=== PATIENT | female | born 1940 | race Caucasian/White ===

== ENCOUNTER 2019-12-03 09:08 | Outpatient (CLI) | payer MEDICARE, BC, SELFPAY ==
--- NOTE | ~2019-12-03 | DEXA_ITS ---
BMD(1) Young-Adult(2) Age-Matched(3) Region (g/cm2) T-score Z-score WHO Classification L1 0.907 -1.9 -0.1 Osteopenia L2 0.913 -2.5 -0.7 Osteoporosis L3 1.012 -1.6 0.1 Osteopenia L4 1.176 -0.3 1.5 Normal L1-L4 1.020 -1.4 0.4 Osteopenia Trend: L1-L4 Change vs Change vs Measured Age BMD(1) Baseline Previous Date (years) (g/cm2) (%) (%) 12[birth year]03/2019 [age] 1.020 baseline - 1 - Statistically 68% of repeat scans fall within 1SD (+- 0.010 g/cm2 for AP Spine L1-L4) 2 - [place] (Combined NHANES (ages 20-30) / Suitey (ages 20-40)) AP Spine Reference Population (v112) 3 - Matched for Age, Weight (females 25-100 kg), Ethnic 11 - World Health Organization - Definition of Osteoporosis and Osteopenia for Women: Normal = T-score at or above -1.0 SD; Osteopenia = T-score between -1.0 and -2.5 SD; Osteoporosis = T-score at or below -2.5 SD; (WHO definitions only apply when a young healthy Women reference database is used to determine T-scores.) Printed: 12/03/2019 10:02:55 AM (13.60)76:3.00:50.00:12.0 0.00:11.58 0.60x1.05 21.3:%Fat=35.3% 0.00:0.00 0.00:0.00 Filename: [id number] Scan Mode: Standard;OneScan 37.0 Dresser [place] [id number] BMD(1) Young-Adult(2,7) Age-Matched(3) Region (g/cm2) T-score Z-score WHO Classification Neck Left 0.724 -2.3 -0.2 Osteopenia Right 0.976 -0.4 1.6 Normal Mean 0.850 -1.4 0.7 Osteopenia Difference 0.252 1.8 1.8 - Total Left 0.763 -1.9 -0.1 Osteopenia Right 0.953 -0.4 1.4 Normal Mean 0.858 -1.2 0.7 Osteopenia Difference 0.190 1.5 1.5 - Hip [place] Length Comparison (mm) (Right = 108.2 mm) (Mean = 100.9 mm) (Left = 107.0 mm) Trend: Total Mean Change vs Change vs Measured Age BMD(1) Baseline Previous Date (years) (g/cm2) (%) (%) 12/03/2019 79.6 0.858 baseline - 1 - Statistically 68% of repeat scans fall within 1SD (+- 0.010 g/cm2 for DualFemur Total) 2 - [place] (Combined NHANES (ages 20-30) / Suitey (ages 20-40)) Femur Reference Population (v112) 3 - Matched for Age, Weight (females 25-100 kg), Ethnic 7 - DualFemur Total T-score difference is 1.5. Asymmetry is Significant. 11 - World Health Organization - Definition of Osteoporosis and Osteopenia for Women: Normal = T-score at or above -1.0 SD; Osteopenia = T-score between -1.0 and -2.5 SD; Osteoporosis = T-score at or below -2.5 SD; (WHO definitions only apply when a young healthy Women reference database is used to determine T-scores.) Printed: 12/03/2019 10:02:55 AM (13.60); Filename: [id number]; Right Femur; 17.5:%Fat=29.3%; Neck Angle (deg)= 62; Scan Mode: Standard 37.0 uGy; Left Femur; 17.0:%Fat=28.6%; Neck Angle (deg)= 60; Scan Mode: Standard 37.0 uGy Sendmail [id number] Dear Richard Duarte, Your patient Rosamaria Noe completed a BMD test on 12/03/2019 using the Sendmail DXA System (analysis version: 13.60) manufactured by [employer]. The following summarizes the results of our evaluation. PATIENT BIOGRAPHICAL: Name: Rosamaria Noe Date: 1940 Height: 60.0 in. Gender: Female
== END 2019-12-03 09:09 | disposition home or self-care (01) ==
LOC: CHSIMG 09:13
PROVIDERS: PCP Family Medicine; Visit Provider Family Medicine
DX: Z78.0 Asymptomatic menopausal state (principal)
CPT/HCPCS: 77080

== ENCOUNTER 2022-03-21 17:26 | Observation (INO) | payer MEDICARE, BC, SELFPAY ==
[2022-03-21] VITALS (9 sets, daily range): BP systolic 108–155; BP diastolic 51–74; PULSE 66–98; RESP 16–20; TEMP 36.7–37.9; O2SAT 90–97; BMI 27.1
--- NOTE | ~2022-03-21 | XR_ITS ---
EXAMINATION: XR chest 1V portable DATE: 03/21/2022 18:13 INDICATION: Cough and fever and chills. TECHNIQUE: A single frontal view of the chest was obtained. COMPARISON: None. FINDINGS: There are airspace opacities in left lower lung zone. No pleural effusion or pneumothorax. The heart size is normal. IMPRESSION: 1. Airspace opacities in left lower lung zone, consistent with atelectasis versus pneumonia. Reviewed, dictated and finalized at location A. GREE TRACER IMPRESSION: 1. Airspace opacities in left lower lung zone, consistent with atelectasis vers us pneumonia.
--- NOTE | 2022-03-21 17:50 | ED.GENADULT ---
HPI - General Adult General Chief complaint: Upper Respiratory Infection Stated complaint: ambulance Time Seen by Provider: 03/21/22 17:38 History of Present Illness HPI narrative: The patient is a 81-year-old woman who lives with other family members. Her grand kid had COVID-19 a few weeks ago and then the patient contracted COVID-19 2 weeks ago. She is vaccinated against COVID-19 2 of 2 doses, no booster. Other comorbidities include hypothyroidism and hyperlipidemia. She is a nonsmoker. The grand child has now contracted influenza A as documented by the laboratory test. The patient herself has had 4 days of symptoms of feeling warm at home with a fever but she does not recall the temperature level. No chills or diaphoresis. Did take Tylenol for the fever. Also with generalized weakness, myalgias, rhinorrhea, nasal congestion, but no sore throat. Occasional cough productive of phlegm but mostly dry cough. She does have occasional dyspnea. She has had decreased oral intake. no abdominal pain or nausea or vomiting. No rash. No diarrhea. Related Data Home Medications Medication Instructions Recorded Confirmed atorvastatin 80 mg tablet 80 mg PO DAILY 03/21/22 03/21/22 esomeprazole magnesium 40 mg 40 mg PO DAILY 03/21/22 03/21/22 capsule,delayed release ezetimibe 10 mg tablet 10 mg PO DAILY 03/21/22 03/21/22 levothyroxine 125 mcg tablet 125 mcg PO DAILY 03/21/22 03/21/22 (Synthroid) Allergies Allergy/AdvReac Type Severity Reaction Status Date / Time No Known Drug Allergies Allergy Other Verified 03/21/22 21:55 CAT GUT SUTURE Allergy Mild REDDNESS, Uncoded 03/21/22 17:57 SWELLING Review of Systems Review of Systems: All systems reviewed & are unremarkable except as noted in HPI and below Constitutional: Constitutional: Reports no additional constitutional complaints, Reports anorexia, Reports body ache(s), Denies chills, Denies excessive sweating, Reports fatigue, Reports fever(s), Denies frequent falls, Denies headache(s), Reports malaise and Reports poor appetite Eyes: Eyes: Reports no additional eye complaints, Denies blurry vision, Denies change in vision, Denies irritation, Denies itchy eyes and Denies photophobia ENT: Reports system reviewed and no additional complaints, except as documented, Reports Normal hearing present, Denies change in voice, Denies dysphagia, Denies vertigo, Denies dizziness, Denies ear discharge, Denies headache(s), Denies hearing loss, Denies hoarseness, Reports nasal congestion, Denies neck pain, Denies sinus pressure, Denies sore throat and Denies throat swelling Cardiovascular: Cardiovascular: Reports no additional cardiovascular complaints, Denies chest pain, Denies syncope, Denies rapid heart rate, Denies irregular heart rhythm, Denies leg edema, Denies dyspnea and Denies slow heart rate Respiratory: Respiratory: Reports no additional respiratory complaints, Reports cough, Reports dyspnea, Denies stridor and Reports wheezing Gastrointestinal: Gastrointestinal: Reports no additional gastrointestinal complaints, Denies abdominal pain, Denies melena, Denies hematochezia, Denies dysphagia, Denies diarrhea, Denies nausea and Denies vomiting Genitourinary: Genitourinary: Denies hematuria, Denies urinary frequency, Denies dysuria, Denies flank pain and Denies urinary urgency Musculoskeletal: Musculoskeletal: Reports no additional musculoskeletal complaints, Denies abnormal gait, Denies back pain, Denies myalgias, Denies arthralgias, Denies joint swelling, Denies limited range of motion, Denies muscle cramps, Denies muscle weakness, Denies neck pain and Denies numbness Integumentary/Breasts: Skin/Breast: Reports system reviewed and no additional complaints, except as docu, Denies breast pain, Denies change in pigmentation, Denies pruritus, Denies erythema and Denies wounds Neurologic: Reports system reviewed and no additional complaints, except as documented, Reports Normal hearing pr
[2022-03-21] MEDS: IPRATROPIUM 0.5 MG/ALBUTEROL SULFATE 2.5 MG AMPUL.NEB 3 ML INHALATION (17:57)
[2022-03-21 18:06] LABS: Basophils Absolute Auto 0.03 K/mm3 (0.00-0.10); Basophils Percent Auto 0.3 % (0.0-1.0); Eosinophils Absolute Auto 0.02 K/mm3 (0.02-0.50); Eosinophils Percent Auto 0.2 % (1.0-6.0); Hematocrit 43.8 % (35.0-42.0); Hemoglobin 14.1 g/dL (11.7-13.8); Immature Granulocyte Absolute 0.03 K/mm3 (0.00-0.00); Immature Granulocyte Percent A 0.3 % (0.0-0.0); Lymphocytes Absolute Auto 0.35 K/mm3 (1.10-4.50); Lymphocytes Percent Auto 3.7 % (18.0-42.0); Mean Corpuscular HGB Conc 32.2 g/dL (32.0-36.0); Mean Corpuscular Volume 86.9 fL (78.0-102.0); Mean Platelet Volume 9.1 fl (9.2-11.8); Monocytes Absolute Auto 0.28 K/mm3 (0.10-0.90); Neutrophils Absolute Auto 8.7 K/mm3 (1.7-7.2); Neutrophils Percent Auto 92.5 % (50.0-70.0); Platelet Count Result 252 K/mm3 (150-420); Red Blood Count 5.04 M/mm3 (4.20-5.40); Red Cell Distribution Width 13.5 % (11.6-14.4); White Blood Count 9.4 K/mm3 (4.8-10.8)
[2022-03-21] MEDS: ACETAMINOPHEN 500 MG TABLET 1000 MG PO (18:15)
[2022-03-21] MEDS: BENZONATATE 100 MG CAPSULE PO (18:15)
[2022-03-21] MEDS: IBUPROFEN 600 MG TABLET PO (18:15)
[2022-03-21] MEDS: methylPREDNISolone SOD SUCC 125 MG VIAL IV PUSH (18:16)
[2022-03-21] MEDS: MAGNESIUM SULF 2 GM/WATER 50ML 2 GM/50 ML BAG IVPB (18:16)
[2022-03-21 18:22] LABS: Alanine Aminotransferase 16 U/L (14-59); Albumin Level 3.9 g/dL (3.4-5.0); Alkaline Phosphatase 97 U/L (46-116); Anion Gap 11 mmol/L (8-16); Aspartate Amino Transferase 30 U/L (15-37); Bilirubin,Total 0.4 mg/dL (0.00-1.00); Blood Urea Nitrogen 13 mg/dL (7-18); Calcium 8.9 mg/dL (8.5-10.1); Carbon Dioxide 24 mmol/L (21-32); Chloride 100 mmol/L (98-108); Estimated Glomerular Filt Rate 40; Glucose 122 mg/dL (70-99); Osmolality Calculated 281 mOsm/kg (285-295); Potassium 3.9 mmol/L (3.5-5.1); Sodium 135 mmol/L (136-145)
[2022-03-21 18:26] LABS: Lactic Acid Reflex 1.2 mmol/L (0.4-2.0)
[2022-03-21 18:35] LABS: Strep Group A RT-PCR DETECTED (Negative)
[2022-03-21 18:45] LABS: Influenza A QL RT-PCR Positive (Negative); Influenza B QL RT-PCR Negative (Negative); SARS-CoV-2 RNA PCR Negative (Negative)
[2022-03-21 18:52] LABS: RSV RNA, RT-PCR Negative (Negative)
[2022-03-21] MEDS: AZITHROMYCIN 250 MG TABLET 500 MG PO (19:31)
[2022-03-21 21:18] LABS: Base Excess ABG -3.5 mmol/L (0-2); HCO3 ABG 20.3 mmol/L (23-29); Oxygen Content ABG 18.5 %vol (16.0-22.0); Oxygen Saturation ABG 92.2 % (95-97); Oxyhemoglobin 91.6 % (94-100); PO2 ABG 60.9 mmHg (75-85); Total Hemoglobin 14.4 g/dL (12.0-18.0); pH ABG 7.41 (7.35-7.45)
[2022-03-21 21:26] LABS: Modified Allen's Test Pass; Site Drawn RIGHT RADIAL
[2022-03-21 21:27] LABS: Device ROOM AIR
--- NOTE | 2022-03-21 21:37 | ECG_ITS ---
Measurements Intervals [place] Rate: 59 P: 71 ND: 162 QRS: -2 QRSD: 93 T: 56 QT: 456 QTc: 453 Interpretive Statements SINUS BRADYCARDIA LOW QRS VOLTAGE IN PRECORDIAL LEADS [QRS DEFLECTION < 1.0 mV IN CHEST LEADS] POOR R-WAVE PROGRESSION ABNORMAL ECG NO PREVIOUS ECG AVAILABLE FOR COMPARISON Electronically Signed On 03-23-2022 9:57:00 CNC OPERATOR PROGRAMMER by Trent Borrero M.D.
--- NOTE | 2022-03-21 22:00 | ADMGEN ---
This patient, Rosamaria Noe, was admitted to 2nd Floor Room 208-1. Patient/family oriented to hospital policies and general routines including ID bracelet, bed and alarms, visiting hours, pain management, procedures, bathroom and other care routines, personal items, smoking policy, room service/diet, and visiting hours. Information on how to activate the Rapid Response Team has been discussed. Patient/Family are encouraged to report perceived risks to care and to ask questions if they do not understand what they are told or what they should do.
[2022-03-21] MEDS: SODIUM CHLORIDE 0.9% IV 1,000 ML 100 ML IV CONT (22:38)
[2022-03-21] MEDS: OSELTAMIVIR PHOSPHATE 30 MG CAPSULE PO (23:22)
[2022-03-22] VITALS (12 sets, daily range): BP systolic 116–124; BP diastolic 47–48; PULSE 59–86; RESP 16–20; TEMP 36.7–37.2; O2SAT 91–94
[2022-03-22] MEDS: IPRATROPIUM 0.5 MG/ALBUTEROL SULFATE 2.5 MG AMPUL.NEB 3 ML INHALATION ×5 (00:10→23:41)
[2022-03-22 05:15] LABS: Hematocrit 40.5 % (35.0-42.0); Hemoglobin 12.8 g/dL (11.7-13.8); Mean Corpuscular HGB Conc 31.6 g/dL (32.0-36.0); Mean Corpuscular Hemoglobin 27.6 pg (27.0-31.0); Mean Corpuscular Volume 87.5 fL (78.0-102.0); Mean Platelet Volume 9.5 fl (9.2-11.8); Platelet Count Result 233 K/mm3 (150-420); Red Blood Count 4.63 M/mm3 (4.20-5.40); Red Cell Distribution Width 13.6 % (11.6-14.4); White Blood Count 12.5 K/mm3 (4.8-10.8)
[2022-03-22 05:32] LABS: Alanine Aminotransferase 12 U/L (14-59); Albumin Level 3.1 g/dL (3.4-5.0); Alkaline Phosphatase 79 U/L (46-116); Anion Gap 10 mmol/L (8-16); Aspartate Amino Transferase 17 U/L (15-37); Bilirubin,Total 0.2 mg/dL (0.00-1.00); Blood Urea Nitrogen 19 mg/dL (7-18); Calcium 8.5 mg/dL (8.5-10.1); Carbon Dioxide 23 mmol/L (21-32); Chloride 102 mmol/L (98-108); Estimated CRCL calculation 23 ml/min; Estimated Glomerular Filt Rate 32; Glucose 178 mg/dL (70-99); Osmolality Calculated 286 mOsm/kg (285-295); Potassium 4.1 mmol/L (3.5-5.1); Sodium 135 mmol/L (136-145); Total Protein 7.1 g/dL (6.4-8.2)
[2022-03-22] MEDS: LEVOTHYROXINE SODIUM 25 MCG TABLET PO (06:01)
[2022-03-22] MEDS: LEVOTHYROXINE SODIUM 100 MCG TABLET PO (06:01)
[2022-03-22] MEDS: ENOXAPARIN 40 MG/0.4 ML SYRINGE SUB-Q (08:42)
[2022-03-22] MEDS: DOCUSATE SODIUM 100 MG CAPSULE PO (08:42)
[2022-03-22] MEDS: methylPREDNISolone SOD SUCC 40 MG VIAL IV PUSH ×2 (08:42→16:30)
[2022-03-22] MEDS: PANTOPRAZOLE SODIUM IV 40 MG VIAL IV PUSH (08:42)
[2022-03-22] MEDS: ATORVASTATIN 40 MG TABLET 80 MG PO (08:42)
[2022-03-22] MEDS: EZETIMIBE 10 MG TABLET PO (08:43)
[2022-03-22] MEDS: BENZONATATE 100 MG CAPSULE 200 MG PO ×3 (08:43→16:30)
[2022-03-22] MEDS: guaiFENesin 12 HR 600 MG TABCR 1200 MG PO ×2 (08:43→20:24)
[2022-03-22] MEDS: SODIUM CHLORIDE 0.9% IV 1,000 ML 999 ML IV CONT (09:31)
--- NOTE | 2022-03-22 13:36 | PM.IMHP ---
H&P: HPI History of Present Illness Date/Time: 03/22/22 13:36 Chief Complaint: weakness, cough Narrative: This is a 81-year-old female presented to arm urgency department with complaints weakness and a chronic cough. patient has a history of hyperlipidemia, GERD, and hypothyroidism. according to patient a couple weeks ago she was diagnosed with COVID along with the rest of her family. Shortly after she developed a chronic cough that she could not get rid of. Yesterday family members attempt to get patient out bed and could not due to weakness. Patient notes that they had to call EMS to transport patient to the emergency department. Vital signs 98.0, 75, 20, 92% on room air, 116/47, WBCs 9.4, hemoglobin 4.1, hematocrit 43.8, platelets 252, ABG pH 7.41, CO2 33.0, O2 60.9, bicarb 20.3, sodium 135, potassium 3.9, BUN 13, creatinine 1.29, glucose 122, lactic acid 1.2, total bilirubin 0.4, AST 30, ALT 16, patient tested positive for influenza a and strep chest x-ray indicate possible pneumonia. Patient will be admitted for the treatment of pneumonia, influenza and strept. patient states that she feels much better. The patient denies SOB, CP, palpitation, extremity numbness, lightheadedness, dizziness, constipation, diarrhea, chills, or fever. Review of Systems Review of Systems: A 14 organ system Review of Systems was performed and pertinent positives included in the HPI, otherwise remaining ROS is negative. [facility] Past Medical History Medical History (Updated 03/22/22 @ 14:14 by MARYANA Mccord) GERD (gastroesophageal reflux disease) HLD (hyperlipidemia) Hypothyroidism Social History Social History Smoking packs per day: 1 Smoking cigarettes per day: 20.0 Years smoked: 20 Smoking pack-years: 20.00 Smoking status: Former smoker Tobacco type: cigarettes Second hand tobacco smoke exposure: Yes (smoke outside) Smoking end date: 03/24/1962 Alcohol intake: current Substance use: never Substance use type: does not use Lack of Transportation: No Lack of Food: Never True Current Housing: I Have Housing Concerned About Future Housing: No Difficulty Paying Gas/Electric Bills: No Difficulty Paying for Meds: No Currently Unemployed: No Education: High School Diploma/GED Difficulty w/ Childcare or Family Care: No Spiritual care concerns: No Meds Home Medications and Allergies Home Medications Medication Instructions Recorded Confirmed Type atorvastatin 80 mg tablet 80 mg PO DAILY 03/21/22 03/21/22 History esomeprazole magnesium 40 mg 40 mg PO DAILY 03/21/22 03/21/22 History capsule,delayed release ezetimibe 10 mg tablet 10 mg PO DAILY 03/21/22 03/21/22 History levothyroxine 125 mcg tablet 125 mcg PO DAILY 03/21/22 03/21/22 History (Synthroid) Allergies Allergy/AdvReac Type Severity Reaction Status Date / Time No Known Drug Allergies Allergy Other Verified 03/21/22 21:55 CAT GUT SUTURE Allergy Mild REDDNESS, Uncoded 03/21/22 17:57 SWELLING Vital Signs Vital Signs - 24 hr 03/21/22 17:40 03/21/22 17:58 03/21/22 18:08 Temperature 100.2 F H Pulse Rate 97 96 98 Respiratory Rate 16 20 20 Blood Pressure 155/74 H Pulse Oximetry 97 95 Oxygen Delivery Nasal Cannula Oxygen Flow Rate 2 1 03/21/22 17:49 03/21/22 19:53 03/21/22 20:30 Temperature 98.1 F 98.1 F Pulse Rate 86 66 Respiratory Rate 20 20 Blood Pressure 108/51 L 121/58 L Pulse Oximetry 96 96 94 Oxygen Delivery Room Air Room Air Oxygen Flow Rate 03/21/22 18:30 03/21/22 22:50 03/21/22 23:57 Temperature 98.4 F Pulse Rate 73 73 Respiratory Rate 16 16 Blood Pressure 115/53 L Pulse Oximetry 90 91 91 Oxygen Delivery Room Air Room Air Room Air Oxygen Flow Rate 03/22/22 00:23 03/22/22 00:25 03/22/22 05:19 Temperature Pulse Rate 59 L 59 L 70 Respiratory Rate 16 18 18 Blood Pressure Pulse Oximetry 92 92 92 Oxygen Delivery Oxygen Flow Rate
[2022-03-22] MEDS: AMOXICILLIN/CLAVULANATE K 500-125 MG TAB 1 TABLET PO ×2 (14:24→20:25)
[2022-03-22] MEDS: OSELTAMIVIR PHOSPHATE 30 MG CAPSULE PO (20:25)
[2022-03-22] MEDS: traZODone HCL 50 MG TABLET PO (20:26)
[2022-03-23] VITALS (7 sets, daily range): BP systolic 127–158; BP diastolic 62–77; PULSE 79–93; RESP 16–20; TEMP 36.9; O2SAT 92–93
--- NOTE | 2022-03-23 00:04 | PC.NURSE ---
Pt up to the bathroom per self and voided; Pt returned to bed per self and states she feels better since she was admitted. Vital signs taken and no signs of discomfort or shortness of breath noted.
--- NOTE | 2022-03-23 02:09 | PC.NURSE ---
Pt asleep and no signs of discomfort noted.
--- NOTE | 2022-03-23 04:03 | PC.NURSE ---
Pt asleep and no signs of discomfort or shortness of breath noted.
[2022-03-23] MEDS: LEVOTHYROXINE SODIUM 25 MCG TABLET PO (06:11)
[2022-03-23] MEDS: LEVOTHYROXINE SODIUM 100 MCG TABLET PO (06:11)
--- NOTE | 2022-03-23 06:25 | PC.NURSE ---
Pt given levothyroxine 125 mcg PO as ordered. Pt doesnt voice any c/o discomfort or shortness of breath.
[2022-03-23] MEDS: IPRATROPIUM 0.5 MG/ALBUTEROL SULFATE 2.5 MG AMPUL.NEB 3 ML INHALATION ×2 (07:06→12:13)
[2022-03-23] MEDS: methylPREDNISolone SOD SUCC 40 MG VIAL IV PUSH (09:28)
[2022-03-23] MEDS: PANTOPRAZOLE SODIUM IV 40 MG VIAL IV PUSH (09:28)
[2022-03-23] MEDS: EZETIMIBE 10 MG TABLET PO (09:29)
[2022-03-23] MEDS: BENZONATATE 100 MG CAPSULE 200 MG PO (09:29)
[2022-03-23] MEDS: guaiFENesin 12 HR 600 MG TABCR 1200 MG PO (09:29)
[2022-03-23] MEDS: AMOXICILLIN/CLAVULANATE K 500-125 MG TAB 1 TABLET PO (09:29)
[2022-03-23] MEDS: ATORVASTATIN 40 MG TABLET 80 MG PO (09:29)
[2022-03-23] MEDS: DOCUSATE SODIUM 100 MG CAPSULE PO (09:30)
[2022-03-23 10:13] LABS: Hematocrit 35.7 % (35.0-42.0); Hemoglobin 11.6 g/dL (11.7-13.8); Mean Corpuscular HGB Conc 32.5 g/dL (32.0-36.0); Mean Corpuscular Hemoglobin 28.4 pg (27.0-31.0); Mean Corpuscular Volume 87.3 fL (78.0-102.0); Mean Platelet Volume 9.3 fl (9.2-11.8); Platelet Count Result 243 K/mm3 (150-420); Red Blood Count 4.09 M/mm3 (4.20-5.40); White Blood Count 16.9 K/mm3 (4.8-10.8)
[2022-03-23 10:22] LABS: Anion Gap 11 mmol/L (8-16); Blood Urea Nitrogen 14 mg/dL (7-18); Calcium 8.7 mg/dL (8.5-10.1); Carbon Dioxide 21 mmol/L (21-32); Chloride 107 mmol/L (98-108); Estimated CRCL calculation 29 ml/min; Estimated Glomerular Filt Rate 41; Glucose 140 mg/dL (70-99); Osmolality Calculated 290 mOsm/kg (285-295); Potassium 3.6 mmol/L (3.5-5.1); Sodium 139 mmol/L (136-145)
--- NOTE | 2022-03-23 10:30 | PM.DS ---
DS: Admitting Diagnosis Discharge Date 03/23/2022 Admitting Diagnosis influenza strep and COPD exacerbation DS: Discharge Diagnosis Discharge Diagnosis (1) Pneumonia of left lower lobe due to influenza A virus: Code(s): J11.00 - Influenza due to unidentified influenza virus with unspecified type of pneumonia Status: Acute Assessment and Plan: chest x-ray indicated pneumonia cont tamiflu bc pending wbc 9.4>12.5 increased with the use of steroids lactic acid 1.2 abg ph 7.41, co2 33.0,o2 60.9, bicarb 20.3 will discharge with cefdinir (2) Acute streptococcal pharyngitis: Code(s): J02.0 - Streptococcal pharyngitis Status: Acute Assessment and Plan: positive for strep continue Augmentin (3) Influenza A: Code(s): J10.1 - Influenza due to other identified influenza virus with other respiratory manifestations Status: Acute Assessment and Plan: continue Tamiflu (4) HLD (hyperlipidemia): Code(s): E78.5 - Hyperlipidemia, unspecified Status: Acute Assessment and Plan: continue statin (5) Hypothyroidism: Code(s): E03.9 - Hypothyroidism, unspecified Status: Acute Assessment and Plan: continue levothyroxine (6) GERD (gastroesophageal reflux disease): Code(s): K21.9 - Gastro-esophageal reflux disease without esophagitis Status: Acute Assessment and Plan: continue pantoprazole (7) Acute kidney injury: Code(s): N17.9 - Acute kidney failure, unspecified Status: Acute Assessment and Plan: bun/cr 13/1.29>19/1.58 secondary to viral infection avoid nephrotoxins agent renal dose medication continue to fluid challenge (8) COPD (chronic obstructive pulmonary disease): Code(s): J44.9 - Chronic obstructive pulmonary disease, unspecified Status: Acute Assessment and Plan: continue albuterol inhaler will add Symbicort patient will discharge home with a nebulizer with solution continue antibiotic treatment DS: Summary Hospital Course Reason for hospitalization: weakness ,copd exacerbation Hospital Course: ? This is a 81-year-old female presented to? arm urgency department with complaints weakness and a chronic cough. patient has? a history of hyperlipidemia, GERD, and hypothyroidism. according to patient a couple weeks ago? she was diagnosed with COVID along with the rest of her family.? Shortly after she developed a chronic cough that she could not get rid of. Yesterday family members attempt to get patient out bed? and could not due to weakness.? Patient notes that they had to call EMS to transport patient to the emergency department. patient has been diagnosed with influenza ,strep, copd exacerbation. patient condition has much improved since her admission she is anxious and agrees with discharge. The patient denies SOB, CP, palpitation, extremity numbness, lightheadedness, dizziness, constipation, diarrhea, chills, or fever. Discharge instructions reviewed with patient, as well as provided in writing per nursing staff. The instructions also include specific and strict return/GO TO THE ER as well as f/u information. All questions have been answered, and the patient and/or family deny any further questions with discharge and discharge plan. Time Spent with Patient Time attestation: Total time spent providing and/or coordinating discharge services: Exam Narrative: GENERAL: This is a well-nourished, well-developed patient, in no apparent distress. HEAD: normocephalic, atraumatic. EYES: PERRL. Sclera clear/white. Vision is grossly intact. EARS: External ears normal, auditory canals clear and without drainage, TMs normal without perforation. Hearing grossly intact. NOSE: External nose normal with no obvious nasal discharge, nares without redness, no rhinorrhea. THROAT: Mucous membranes moist, posterior pharynx clear. NECK: Neck supple, non-tender withou
--- NOTE | 2022-03-23 12:35 | PC.NURSE ---
Patient discharging home. IV site removed, tip intact. Dressing applied to site. All belongings gathered together and sent home with patient. All education and discharge instructions reviewed with patient. Patient states understanding. Patient left floor ambulatory accompanied by imelda. Patient denies any questions at discharge.
--- NOTE | 2022-03-28 11:08 | PC.NURSE ---
Unable to contact for discharge call back.
== END 2022-03-23 12:35 | disposition home or self-care (01) ==
LOC: CHSED 20:50 → CHS2ND 21:38
PROVIDERS: Nurse Practitioner; Admitting Provider Internal Medicine; Emergency Provider Emergency Medicine; PCP Family Medicine; Visit Provider Internal Medicine
DX: J10.00 Influenza due to other identified influenza virus with unspecified type of pneumonia (principal); J02.0 Streptococcal pharyngitis; J44.1 Chronic obstructive pulmonary disease with (acute) exacerbation; N17.9 Acute kidney failure, unspecified; E78.5 Hyperlipidemia, unspecified; E03.9 Hypothyroidism, unspecified; K21.9 Gastro-esophageal reflux disease without esophagitis; Z20.822 Contact with and (suspected) exposure to COVID-19; Z28.311 Partially vaccinated for COVID-19; Z87.891 Personal history of nicotine dependence; J44.0 Chronic obstructive pulmonary disease with (acute) lower respiratory infection
CPT/HCPCS: 36415; 36600; 71045; 80048; 80053; 82805; 83605; 85025; 85027; 87040; 87147; 87186; 87637; 87651; 93005; 94640; 96361; 96365; 96367; 96372; 96375; 96376; 97162; 97165; 99285; A9270; C9113; G0378; J0696; J1650; J2920; J2930; J3475; J7030

== ENCOUNTER 2023-03-28 13:13 | Outpatient (CLI) | payer MEDICARE, BC, SELFPAY ==
--- NOTE | ~2023-03-28 | US_ITS ---
EXAMINATION: US soft tissue head and neck DATE: 03/28/2023 13:53 INDICATION: Localized swelling, mass and lump in the neck TECHNIQUE: Multiple grayscale and Doppler ultrasound images of the region of concern at the base of t he left neck were obtained. COMPARISON: None FINDINGS: Normal appearance to the subcutaneous fat, subcutaneous vessels and underlying musculature at the reg ion of concern. No pathologically enlarged lymph nodes or other abnormal masses or fluid collections identified. IMPRESSION: 1. No correlate for the reported palpable abnormality. No enlarged lymph nodes or other abnormal mass es or fluid collections identified. Reviewed, dictated and finalized at location A. ON INFORMATION SPECIALIST IMPRESSION: 1. No correlate for the reported palpable abnormality. No enlarged lymph nodes or other abnormal masses or fluid collections identified.
== END 2023-03-28 13:14 | disposition home or self-care (01) ==
LOC: CHSIMG 13:15
PROVIDERS: PCP Family Medicine; Visit Provider Registered Nurse
DX: R22.1 Localized swelling, mass and lump, neck (principal)
CPT/HCPCS: 76536

== ENCOUNTER 2023-04-10 09:27 | Outpatient (CLI) | payer MEDICARE, BC, SELFPAY ==
--- NOTE | ~2023-04-10 | XR_ITS ---
XR UGIAC w barium swallow DATE: 04/10/2023 10:36 INDICATION: Dysphagia TECHNIQUE: Fluoroscopy and rapid sequence spot radiographs and overhead radiographs during oral inges tion of barium. Air contrast upper gastrointestinal series including stomach and duodenum COMPARISON: None FINDINGS: There is a small sliding hiatal hernia with spontaneous gastroesophageal reflux into the mi d thoracic esophagus. No stricture, erosion, ulceration, intraluminal mass lesion or diverticulum of the esophagus, stomach or duodenum is detected. The duodenal bulb is normally shaped without evidence of scarring or ulcer. The duodenal and proximal jejunal mucosal pattern is normal. IMPRESSION: Small sliding hiatal hernia with gastroesophageal reflux into the mid thorax; otherwise n ormal examination Reviewed, dictated and finalized at Location A. Reviewed, dictated and finalized at location L. E INSTRUCTOR IMPRESSION: Small sliding hiatal hernia with gastroesophageal reflux into the m id thorax; otherwise normal examination
== END 2023-04-10 09:28 | disposition home or self-care (01) ==
LOC: CHSIMG 09:29
PROVIDERS: PCP Family Medicine; Visit Provider Family Medicine
DX: R13.10 Dysphagia, unspecified (principal); M79.602 Pain in left arm; K44.9 Diaphragmatic hernia without obstruction or gangrene; K21.9 Gastro-esophageal reflux disease without esophagitis
CPT/HCPCS: 74220; 74246

== ENCOUNTER 2023-09-15 10:02 | Outpatient (CLI) | payer MEDICARE, BC, SELFPAY ==
--- NOTE | ~2023-09-15 | XR_ITS ---
EXAMINATION: XR ribs RT 2V w CXR 2V DATE: 09/15/2023 10:52 INDICATION: Acute right chest pain. TECHNIQUE: Frontal and lateral views of the chest and 2 views on 3 radiographs of the right ribs were obtained. COMPARISON: Chest single view 03/21/2022 FINDINGS: CHEST TWO VIEWS: There is mild atelectasis in the lower lung zones. No pleural effusion or pneumothor ax. The heart size is normal. RIGHT RIBS: There is no fracture. IMPRESSION: 1. No rib fracture. Reviewed, dictated and finalized at location A. IMPRESSION: 1. No rib fracture.
--- NOTE | ~2023-09-15 | XR_ITS ---
EXAMINATION: XR thoracic spine 3V DATE: 09/15/2023 10:52 INDICATION: Right mid back pain. TECHNIQUE: 3 views of thoracic spine were obtained. COMPARISON: None. FINDINGS: There is 9 degrees levocurvature of thoracic spine. There is kyphosis of thoracic spine. Ve rtebral body heights are normal. There is mild to moderately decreased disc height at multiple levels in mid and upper thoracic spine. There is multilevel mild facet joint osteoarthritis. IMPRESSION: 1. Moderate thoracic spondylosis. 2. Thoracic kyphosis. Reviewed, dictated and finalized at location A.
== END 2023-09-15 10:03 | disposition home or self-care (01) ==
LOC: CHSIMG 10:07
PROVIDERS: PCP Family Medicine; Visit Provider Family Medicine
DX: R05.9 Cough, unspecified (principal); M54.6 Pain in thoracic spine; M43.04 Spondylolysis, thoracic region; M40.294 Other kyphosis, thoracic region
CPT/HCPCS: 71046; 71100; 72072

== ENCOUNTER 2023-11-08 10:01 | Outpatient (CLI) | payer MEDICARE, BC, SELFPAY ==
--- NOTE | ~2023-11-08 | MR_ITS ---
EXAMINATION: MR thoracic spine wo con DATE: 11/08/2023 11:46 INDICATION: Thoracic spine pain. TECHNIQUE: Magnetic resonance imaging (MRI) of the thoracic spine was performed without intravenous c ontrast. COMPARISON: Thoracic spine radiograph 09/15/2023 FINDINGS: There is 8 degrees levocurvature of thoracic spine. There is kyphosis of thoracic spine. Th ere are chronic compression fractures of T3 and T4. There is mildly decreased disc height from T5-T6 through T10-T11. At T3-T4, there is a central protrusion with mild central canal stenosis. At T10-T11 , there is a left central extrusion with mild central canal stenosis. There is multilevel facet joint osteoarthritis, severe on the right at T4-T5. On the right, there is mild neural foraminal stenosis at T4-T5. The spinal cord signal intensity is normal. The conus medullaris is at L1-L2. IMPRESSION: 1. Mild thoracic spondylosis. 2. Thoracic kyphosis. Reviewed, dictated and finalized at location A.
== END 2023-11-08 10:02 | disposition home or self-care (01) ==
LOC: CHSIMG 10:02
PROVIDERS: PCP Family Medicine; Visit Provider Family Medicine
DX: M47.24 Other spondylosis with radiculopathy, thoracic region (principal); M40.294 Other kyphosis, thoracic region
CPT/HCPCS: 72146

== ENCOUNTER 2024-09-15 11:57 | Outpatient (CLI) | payer MEDICARE, BC, SELFPAY ==
--- NOTE | ~2024-09-15 | DEXA_ITS ---
Bone Density Report Name: NEERAJ MELTON Age: 84 Sex: Female Ethnicity: White Date of : 1940 Indication: osteopenia; height loss; hysterectomy; Referring Provider: Kirstin*Anirudh Patten Study: Bone densitometry was performed. Exam Date: September 15, 2024 Accession number: [id number] Bone Density: Region BMD T-score Z-score Classification AP Spine(L1-L4) 0.877 -1.5 1.2 Osteopenia Femoral Neck (Left) 0.605 -2.2 0.2 Osteopenia Total Hip (Left) 0.754 -1.5 0.7 Osteopenia Femoral Neck (Right) 0.757 -0.8 1.6 Normal Total Hip (Right) 0.814 -1.1 1.1 Osteopenia Femoral Neck Mean 0.681 -1.5 0.9 Osteopenia Total Hip Mean 0.784 -1.3 0.9 Osteopenia World Health Organization criteria for BMD impression classify patients as: Normal (T-score at or above -1.0), Osteopenia (T-score between -1.0 and -2.5), or Osteoporosis (T-score at or below -2.5). 10-year Fracture Risk(1): Major Osteoporotic Fracture 16% Hip Fracture 5.3% Reported Risk Factors: [place] (), Neck BMD=0.605, BMI=27.5 (1) FRAX(R) Version 3.08. Fracture probability calculated for an untreated patient. Fracture probability may be lower if the patient has received treatment. Previous Exams: Region Exam Age BMD T-score BMD Change BMD Change Date g/cm2 vs Baseline vs Previous AP Spine (L1-L4) 09/15/2024 84 0.877 -1.5 -0.022 (-2.4%) -0.022 (-2.4%) 12/03/2019 79 0.899 -1.3 Total Hip(Left) 09/15/2024 84 0.754 -1.5 0.050 (7.1%)# 0.050 (7.1%)# 12/03/2019 79 0.704 -1.9 Total Hip(Right) 09/15/2024 84 0.814 -1.1 -0.075 (-8.5%) -0.075 (-8.5%) 12/03/2019 79 0.889 -0.4 *Denotes significance at 95% confidence level, LSC for AP Spine = 0.022 g/cm2, LSC for Total Hip = 0.027 g/cm2 # Denotes dissimilar scan types or analysis methods Clinical Information Provided by Patient: Has used the following medications: Vitamin D Has the following medical conditions: Hysterectomy Patient maximum height was 62. Menopause Age: 42 Does not regularly consume dairy products Drinks caffeinated beverages Onset of menses at age 13 Number of children 3 Impression: The patient has low bone mass, based on the Left Femoral Neck T-score. No significant bone loss was observed. Discussion: BONE DENSITY IS LOW AT ONE OR MORE SKELETAL SITES. This patient's lowest T-score is low at one or more skeletal sites. It meets the World Health Organization's (WHO) criteria for ?low bone mass? (T-score between -1.0 and -2.5). The patient's 10-year risk of fracture as calculated by FRAX is less than the threshold where pharmacological therapy is recommended by the National Osteoporosis Foundation (NOF). However, all treatment decisions require clinical judgment and consideration of individual patient factors, including patient preferences, comorbidities, previous drug use, risk factors not captured in the FRAX model (e.g., frailty, falls, vitamin D deficiency, increased bone turnover, interval significant decline in bone density) and possible under or overestimation of fracture risk by FRAX. The patient should follow a healthful lifestyle (good nutrition with adequate calcium and vitamin D, and appropriate weight-bearing exercise). Follow-Up: Consider repeating this study in 2 to 3 years to reassess this patient's status, or sooner if there is some new clinical indication. Reported by: CONCHA on 09/15/2024 12:35:00 PM. Reviewed, dictated and finalized at location A.
--- NOTE | ~2024-09-15 | MM_ITS ---
EXAMINATION: MM screening massiel BI w kimmie HISTORY: Screening mammogram TECHNIQUE: Craniocaudal and mediolateral oblique 3-D tomosynthesis images were obtained and synthetic 2-D images were generated. CAD analysis was submitted and interpreted. COMPARISON: No prior mammogram is available for comparison at this institution. BREAST PARENCHYMAL COMPOSITION:Dense: The breasts are heterogeneously dense, which may obscure small masses. FINDINGS: No suspicious mass, calcification, or architectural distortion are identified in either xuan ast to suggest malignancy. There has been no suspicious interval change. IMPRESSION: No mammographic evidence of malignancy. Recommend routine screening mammography in one year. BI-RADS Category 1: Negative Reviewed, dictated and finalized at location .
== END 2024-09-15 11:58 | disposition home or self-care (01) ==
PROVIDERS: PCP Family Medicine; Visit Provider Family Medicine
DX: Z12.31 Encounter for screening mammogram for malignant neoplasm of breast (principal); Z78.0 Asymptomatic menopausal state; M85.89 Other specified disorders of bone density and structure, multiple sites
CPT/HCPCS: 77063; 77067; 77080